=== PATIENT | female | born 2005 | race Two or more races ===

== ENCOUNTER 2024-01-04 05:59 | Emergency (ER) | payer SELFPAY ==
[2024-01-04] MEDS ORDERED: Naproxen 500 MG TAB ONE (06:27)
[2024-01-04 07:28] LABS: Bacteria/HPF None Seen HPF (None Seen); Bilirubin Negative (Negative); Blood, Urine Negative (Negative); CAUTI Indications for Culture Pelvic or flank pain; Clarity Clear (Clear); Glucose, Urine (Dipstick) Normal (Negative); Ketone, Urine Negative (Negative); Leukocyte Negative Leu/uL (Negative); Nitrite Negative (Negative); Protein, Urine (Dipstick) 30 mg/dL (Neg-Trace); RBC/HPF 0-3 HPF (0-3); Specific Gravity, Urine 1.043 (1.002-1.036); WBC/HPF 0-3 HPF (0-3)
[2024-01-04 07:33] LABS: Pregnancy Test - Urine (BHCG) Negative (Negative); Pregu Control Background? CLEAR/WHITE (CLR/WHITE); Pregu Control Bar Appear? YES (CONTROL BAR); Specific Gravity 1.043 (1.002-1.036); Urine Culture Reflex No No
== END 2024-01-04 08:15 | disposition home or self-care (01) ==
LOC: ERS 05:59
DX: R10.2 Pelvic and perineal pain (principal)
CPT/HCPCS: 81001; 81025; 99284

== ENCOUNTER 2024-04-26 19:35 | Emergency (ER) | payer SELFPAY ==
[2024-04-26] MEDS ORDERED: Ibuprofen 200 MG TAB ONE (21:40)
== END 2024-04-26 21:42 | disposition home or self-care (01) ==
LOC: ERS 19:35
DX: S39.91XA Unspecified injury of abdomen, initial encounter (principal); W22.09XA Striking against other stationary object, initial encounter
CPT/HCPCS: 99283

== ENCOUNTER 2025-02-09 13:02 | Emergency (ER) | payer SELFPAY ==
[2025-02-09] MEDS ORDERED: Boostrix 0.5 ML (Tdap) VIAL (>/=7 yrs of age) ONE (13:37)
[2025-02-09] MEDS ORDERED: CEFAZOLIN 2 GM VIAL ONE (15:25)
[2025-02-09] MEDS ORDERED: Ondansetron PF 4 MG/2 ML Vial ONE (15:25)
[2025-02-09] MEDS ORDERED: Lidocaine 1% w/Epinephrine 1:100K 20 ML VIAL ONE (15:27)
== END 2025-02-09 18:30 | disposition home or self-care (01) ==
LOC: ERS 13:02
DX: S81.811A Laceration without foreign body, right lower leg, initial encounter (principal); Z23 Encounter for immunization; W25.XXXA Contact with sharp glass, initial encounter; W01.0XXA Fall on same level from slipping, tripping and stumbling without subsequent striking against object, initial encounter; Y92.000 Kitchen of unspecified non-institutional (private) residence as the place of occurrence of the external cause
CPT/HCPCS: 12035; 90471; 90715; 96374; 96375; J2405; J3010

== ENCOUNTER 2025-02-18 19:15 | Emergency (ER) | payer SELFPAY | END 2025-02-18 19:52 | disposition home or self-care (01) | LOC: ERS 19:15 | DX: S81.811D Laceration without foreign body, right lower leg, subsequent encounter (principal); Z48.02 Encounter for removal of sutures; W25.XXXD Contact with sharp glass, subsequent encounter; W01.0XXD Fall on same level from slipping, tripping and stumbling without subsequent striking against object, subsequent encounter ==